=== PATIENT | female | born 1960 | race Caucasian/White ===

== ENCOUNTER 2018-04-20 11:01 | Day surgery (SDC) | payer MEDICAID, OTHER ==
[2018-04-20] MEDS ORDERED: Propofol 10 mg/ml Inj (20 ML) ONE (13:27)
[2018-04-20] MEDS ORDERED: Midazolam 2 MG/2 ML VIAL ONE (13:27)
[2018-04-20] MEDS ORDERED: Lactated Ringer's 1,000 ML IV ONE (13:53)
[2018-04-20] MEDS ORDERED: HYDROmorphone 0.5 mg/0.5 ml ISec IVP PRN (14:30)
[2018-04-20 16:10] VITALS: O2SAT 100
[2018-04-20 16:24] VITALS: BP 117/69; PULSE 68; RESP 18; TEMP 97
--- NOTE | 2018-04-20 18:39 | PCM.SURG1 ---
Surgeon's Initial Post Op Note - Surgeon's Notes Surgeon: dr simms [employer] Manager: none Type of Anesthesia: General LMA Anesthesia Administered By: dr cassandra pyle Pre-Operative Diagnosis: 57 yr wih pmb/end thickening Operative Findings: see the op reoer Post-Operative Diagnosis: same with end polyp Operation Performed: myasue/d&c, hstersopy Specimen/Specimens Removed: ecc. emc. polyp Estimated Blood Loss: EBL {In ML}: 20 Blood Products Given: N/A Drains Used: No Drains Post-Op Condition: Good Date of Surgery/Procedure: 04/20/18 Time of Surgery/Procedure: 15:00
--- NOTE | 2018-04-21 06:37 | OP ---
PROCEDURE DATE: 04/20/2018 PREOPERATIVE DIAGNOSIS: This is a 57-year-old 3, para 3 with postmenopausal uterine bleeding. POSTOPERATIVE DIAGNOSIS: This is a 57-year-old 3, para 3 with postmenopausal uterine bleeding with endometrial polyp. SURGEON: Bret Paz MD ABSTRACT MAKER: None. TYPE OF ANESTHESIA: General anesthesia. ANESTHESIOLOGIST: Dr. Bronson Godoy. COMPLICATIONS: None. ESTIMATED BLOOD LOSS: 20 mL. PROCEDURE PERFORMED: MyoSure, dilatation and curettage, hysteroscopy. DESCRIPTION OF PROCEDURE: After informed consent was obtained, the patient was brought to the operating room, placed on the table where general anesthesia was given. Once the anesthesia was found to be adequate, the patient was prepped and draped in the normal sterile fashion. Examination under anesthesia revealed the uterus to be 8-week size. No pelvic or adnexal masses. Anterior lip of the cervix was grasped with a tenaculum. Gentle dilation of the cervix was done. After hysteroscope was introduced, there was found a very small polyp on the anterior wall of the uterus. Picture was taken and after that, the decision was made to use the MyoSure. MyoSure was used to take out the polyp. It was sent to the pathology. After that, sharp curettage of the anterior wall of the uterus was taken out, and the ECC was sent to the pathology. Moderate amount of was found out and it was sent to the pathology. After that, tenaculum was taken out from anterior lip of the cervix. The patient tolerated the procedure well. EBL was 20 mL and deficit was 200 mL. The patient tolerated the procedure well. Lap, sponge, and instrument counts were correct x2. Bret Paz MD
== END 2018-04-20 16:53 | disposition home or self-care (01) ==
LOC: C.SDS 11:01 → C.OPSURG 11:01 → C.SDS 16:53
PROVIDERS: ATTEND Obstetrics & Gynecology
DX: C54.1 Malignant neoplasm of endometrium (principal); N95.0 Postmenopausal bleeding; N84.0 Polyp of corpus uteri
CPT/HCPCS: 58558; 82948; 88305; J2250; J2704; J3010; J7120